=== PATIENT | female | born 1960 ===

== ENCOUNTER 2017-08-11 22:10 | Observation (INO) | payer OTHER ==
[2017-08-11] MEDS: Sodium Chloride 0.9% 1,000 ML IV SCH (23:14)
--- NOTE | 2017-08-11 23:40 | ED PDOC ---
History of Present Illness History of Present Illness: Patient is a 57 year old female who presents to ED for evaluation of tactile fever, nasal congestion, sore throat, and body aches (mostly lower back pain) for the past 3 days associated with a wet cough productive of clear/green tinged phlegm. Patient reports she is visiting from [place] and arrived in the [facility] 3 weeks ago. Patient states that right before she left [place], she had a physical examination and blood work that resulted unremarkable. Patient states she takes a "liver medication" but cannot recall why or the name of the medication. She further reports that her daughter gave her an unknown medication this afternoon which caused her to immediately vomit x1 (NB, NB). Patient denies any: chest pain, abdominal pain, diarrhea, current nausea, rash, sick contacts, headache, dizziness, urinary symptoms, chills, SOB, ear pain, palpitations. PMD: in [place] Management Planner line: # [id number] HPI: Influenza Time Seen by Provider: 08/11/17 22:31 Chief Complaint: Cough, Cold, Congestion Chief Complaint (Provider): Fever, Cough History Per: Patient Exam Limitations: no limitations Have you had recent travel within the past 21 days to any of: Yes Other Location:: [place] Onset/Duration Of Symptoms: Days (x3) Sick Contacts (Context): None Past Medical History Reviewed: Historical Data, Nursing Documentation, Vital Signs Vital Signs: Last Vital Signs Temp 101.0 F H 08/11/17 23:14 Pulse 105 H 08/11/17 22:30 Resp 18 08/11/17 22:30 BP 142/70 08/11/17 22:30 Pulse Ox 96 08/11/17 22:30 - Medical History Other PMH: Possible liver disease - Surgical History Surgical History: Cholecystectomy - Family History Family History: States: Unknown Family Hx - Living Arrangements Living Arrangements: With Family - Social History Current smoker - smoking cessation education provided: No Alcohol: None Drugs: Denies - Allergies Allergies/Adverse Reactions: Allergies Allergy/AdvReac Type Severity Reaction Status Date / Time No Known Allergies Allergy Verified 08/11/17 22:41 Review of Systems ROS Statement: Except As Marked, All Systems Reviewed And Found Negative Constitutional: Positive for: Fever ENT: Positive for: Throat Pain Respiratory: Positive for: Cough Gastrointestinal: Positive for: Vomiting Musculoskeletal: Positive for: Back Pain, Other (body aches) Physical Exam - Reviewed Nursing Documentation Reviewed: Yes Vital Signs Reviewed: Yes - Physical Exam Appears: Positive for: Well, Non-toxic, No Acute Distress Head Exam: Positive for: ATRAUMATIC, NORMOCEPHALIC Skin: Positive for: Normal Color, Warm, Dry Eye Exam: Positive for: EOMI, PERRL. Negative for: Conjunctival injection ENT: Positive for: Pharynx Is (clear, uvula midline), TM Is/Are (nonbulging and nonerythematous bilaterally), Nasal Congestion (clear rhinorrhea (-) nasal flaring), Pharyngeal Erythema (mild), Other (mucus membranes moist, airway patent.). Negative for: Sinus Pain/Drainage, Tonsillar Exudate Neck: Positive for: Painless ROM, Supple Cardiovascular/Chest: Positive for: Regular Rate, Rhythm Respiratory: Positive for: Normal Breath Sounds (speaking in full sentences, respirations even and nonlabored). Negative for: Decreased Breath Sounds, Accessory Muscle Use, Respiratory Distress Gastrointestinal/Abdominal: Positive for: Soft. Negative for: Tenderness, Mass , Distended, Guarding, Rebound Back: Positive for: Other (bilateral paralumbar tenderness). Negative for: L CVA Tenderness, R CVA Tenderness, Vertebral Tenderness Extremity: Positive for: Normal ROM. Negative for: Deformity Neurologic/Psych: Positive for: Alert, Oriented (x3), Cerebellar Tests (intact) , Gait (steady in ED). Negative for: Aphasia, Facial Droop Medical Decision Making Medical Decision Making: Clinical Impression: Fever, Cough R/O Pneumonia Plan: -IV access -CBC -CMP -Blood Culture -Urinalysis -Urine culture -Troponin -EKG -Chest XR -VBG shock panel -Tylenol 650mg PO -Zofran 4mg ODT -Rapid Strep -Throat culture -Influenza A/B -Business Information Consultant [id number] EKG reviewed: NSR @ 93 bpm (-) ST elevation (-) ectopy; QTc 442. 0000 Case endorsed to Emily Arevalo PA-C, at 0000, pending lab results, re-evaluation, and further disposition. Pertinent details reviewed. - Laboratory Results Result Diagrams: 08/11/17 23:05 08/11/17 23:05 - ECG O2 Sat by Pulse Oximetry: 96 (RA) Pulse Ox Interpretation: Normal Disposition - Clinical Impression Clinical Impression: Cough, Fever, Nasal congestion - Patient ED Disposition Is Patient to be Admitted: Transfer of Care (to Emily Arevalo PA-C at 0000 pending lab results, re-evaluation, and further disposition) - Disposition Disposition: Transfer of Care (to Emily Arevalo [facility] at 0000 pending re-evaluation and further disposition) Disposition Time: 00:00 Condition: FAIR Forms: [employer] ([place] Islander)
[2017-08-11 23:50] LABS: BASO # 0.1 K/uL (0.0-0.2); BASO % 0.5 % (0.0-2.0); HEMOGLOBIN 14.2 g/dL (12.0-16.0); LYMPH # 1.3 K/uL (1.0-4.3); LYMPH % 5.4 % (20.0-40.0); MEAN CORPUSCULAR HEMOGLOBIN 32.9 pg (27.0-31.0); MEAN CORPUSCULAR HGB CONC 34.2 g/dL (33.0-37.0); MEAN PLATELET VOLUME 9.9 fl (7.2-11.7); MONO # 1.9 K/uL (0.0-0.8); MONO % 8.2 % (0.0-10.0); NEUT # 20.1 K/uL (1.8-7.0); NEUT % 85.9 % (50.0-75.0); PLATELET COUNT 152 K/uL (130-400); RBC 4.34 Mil/uL (3.80-5.20); RED CELL DISTRIBUTION WIDTH 12.4 % (11.5-14.5); WHITE BLOOD COUNT 23.4 K/uL (4.8-10.8)
[2017-08-11 23:52] LABS: VENOUS BLOOD GAS BASE EXCESS 2.2 mmol/L (0.0-2.0); VENOUS BLOOD GAS PCO2 34 mmHg (40-60); VENOUS BLOOD GAS PO2 64 mm/Hg (30-55); VENOUS BLOOD PH 7.48 (7.32-7.43)
[2017-08-11 23:56] LABS: SQUAMOUS EPITHIAL < 1 /hpf (0-5); URINE BACTERIA RARE (<OCC); URINE BILIRUBIN NEGATIVE (NEGATIVE); URINE BLOOD SMALL (NEGATIVE); URINE CLARITY SLIGHTY-CLOUDY (Clear); URINE COLOR YELLOW (YELLOW); URINE GLUCOSE (UA) NEG (Normal); URINE LEUKOCYTE ESTERASE NEG Leu/uL (Negative); URINE PROTEIN 30 mg/dL (NEGATIVE); URINE UROBILINOGEN 0.2-1.0 mg/dL (0.2-1.0)
[2017-08-11 23:57] LABS: ALBUMIN 4.3 g/dL (3.5-5.0); ALT/SGPT 82 U/L (9-52); AST/SGOT 48 U/L (14-36); BLOOD UREA NITROGEN 10 mg/dl (7-17); CALCIUM 9.3 mg/dL (8.4-10.2); GFR AFRICAN-AMERICAN > 60; GFR NON-AFRICAN AMERICAN > 60
--- NOTE | 2017-08-12 00:30 | RAD ---
EXAM: XR Chest, 2 Views CLINICAL HISTORY: 57 years old, female; Signs and symptoms; Cough and fever; Symptoms not specified; Additional info: Fever, cough TECHNIQUE: Frontal and lateral views of the chest. COMPARISON: No relevant prior studies available. FINDINGS: Lungs: Apparent mild patchy opacity medial right lung base. Pleural space: No pleural effusion. No pneumothorax. Heart: No cardiomegaly. Mediastinum: Unremarkable. Bones/joints: No acute fracture. Upper abdomen: Surgical clips within RIGHT upper quadrant. IMPRESSION: 1. Suspect right basilar pneumonia. Followup to resolution to exclude underlying pathology. 2. Incidental/non-acute findings are described above.
--- NOTE | 2017-08-12 00:41 | ED PDOC ---
- Laboratory Results Result Diagrams: 08/11/17 23:05 08/11/17 23:05 - ECG O2 Sat by Pulse Oximetry: 96 (RA) - Progress ED Course And Treament: case endorsed to telegraphic typewriter installer from [facility]ST[facility]O pending labs, xray read, re-eval EXAM: XR Chest, 2 Views CLINICAL HISTORY: 57 years old, female; Signs and symptoms; Cough and fever; Symptoms not specified; Additional info: Fever, cough TECHNIQUE: Frontal and lateral views of the chest. COMPARISON: No relevant prior studies available. FINDINGS: Lungs: Apparent mild patchy opacity medial right lung base. Pleural space: No pleural effusion. No pneumothorax. Heart: No cardiomegaly. Mediastinum: Unremarkable. Bones/joints: No acute fracture. Upper abdomen: Surgical clips within RIGHT upper quadrant. IMPRESSION: 1. Suspect right basilar pneumonia. Followup to resolution to exclude underlying pathology. 2. Incidental/non-acute findings are described above. IV rocephin, IV zithromax ordered. potassium PO ordered Case discussed with Dr. Cason, Hospitalist on-call, for admission Disposition - Clinical Impression Clinical Impression: Pneumonia, Sepsis - POA Present On Arrival: None - Disposition Disposition: Admitted as In-Patient Disposition Time: 01:10 Condition: FAIR Forms: [employer] (Icelandic)
[2017-08-12] MEDS: Sodium Chloride 0.9% 1,000 ML IV SCH ×5 (00:52→20:59)
[2017-08-12 00:56] LABS: LARGE PLATELETS PRESENT; LYMPHOCYTE 4 % (20-50); MONOCYTE 9 % (0-10); NEUTROPHIL 87 % (42-75); PLATELET ESTIMATE NORMAL (NORMAL); TOTAL CELLS COUNTED 100
[2017-08-12] MEDS ORDERED: Azithromycin 500 MG in Sodium Chloride 0.9% 250 ML IVPB STA (01:07)
[2017-08-12] MEDS ORDERED: Potassium Chloride 20 mEq ER Tab PO ONE ×2 (01:14→01:44)
[2017-08-12] MEDS ORDERED: Sodium Chloride 3% for Inhalation 4 ML VIAL.NEB IH PRN (01:17)
[2017-08-12] MEDS ORDERED: Acetaminophen-Codeine 300/30 mg Tab PO PRN (01:30)
[2017-08-12] MEDS ORDERED: cefTRIAXone (Rocephin) 1 gm Inj ONE (01:43)
--- NOTE | 2017-08-12 01:55 | CP.PCM.HP ---
History of Present Illness - History of Present Illness History of Present Illness: CC: Fever, chills This is a 57 year old female with pmh of non alcoholic steatohepatitis, with no other reported past medical history, visiting from [place] but has been [place] the [place] 1 [place], who is complaining of abrupt onset of nasal congestion, sore throat , generalized malaise which has been going on x 3 days. Today she felt feverish and weak which caused her to come to the ED. She is also c/o nausea and vomiting earlier today after receving an unknown medication from her daughter. In the ED, the patient was found to be mildly tachycardic at 105, fever of 101, and with leukocytosis of 23.4 and neut % 85.9. CXR reveals right basilar pneumonia. Given her pneumonia and meeting sepsis criteria, the patient is to be admitted to telemetry for monitoring and treatment. Patient denies chest pain , shortness of breath,diarrhea, headache. All of the patient's questions were answered at the bedside. Present on Admission - Present on Admission Any Indicators Present on Admission: No History of DVT/PE: No History of Uncontrolled Diabetes: No Review of Systems - Review of Systems Review of Systems: A 12 point review of systems was conducted and found to be negative other than what was mentioned in the HPI. - Hematologic/Lymphatic Additional comments: A 12 point review of systems was conducted and found to be negative other than in HPI. Past Patient History - Infectious Disease Hx of Infectious Diseases: None - Past Medical History & Family History Past Medical History?: Yes Past Family History: Reviewed and not pertinent - Past Social History Smoking Status: Never Smoked Alcohol: None Drugs: Denies - PSYCHIATRIC Hx Substance Use: No - SURGICAL HISTORY Hx Cholecystectomy: Yes - ANESTHESIA Hx Anesthesia: Yes Meds Allergies/Adverse Reactions: Allergies Allergy/AdvReac Type Severity Reaction Status Date / Time No Known Allergies Allergy Verified 08/11/17 22:41 Physical Exam - Additional Findings Additional findings: Physical exam: Constitutional- cooperative, awake, alert Head- NCAT, PERRL Eye- PERRL, EOMI ENT- normal exam, MMM. Neck- normal inspection, supple, no JVD Respiratory- CTAB, scattered rhonchi bilaterally, most prominent at right base Cardiovascular- RRR, +S1, +S2 no MRG GI/Abdominal- normal bowel sounds, soft, no mass, no hsm Skin- warm, dry Extremities Exam- normal capillary refill, normal inspection Neurological Exam- alert, awake, oriented Psych- normal mood, normal affect Results - Vital Signs Recent Vital Signs: Last Vital Signs Temp 99 F 08/12/17 00:14 Pulse 105 H 08/11/17 22:30 Resp 18 08/11/17 22:30 BP 142/70 08/11/17 22:30 Pulse Ox 96 08/12/17 01:27 - Labs Result Diagrams: 08/11/17 23:05 08/11/17 23:05 Labs: Laboratory Results - last 24 hr 08/11/17 08/11/17 08/11/17 23:05 23:05 23:05 WBC 23.4 H RBC 4.34 Hgb 14.2 Hct 41.6 MCV 96.0 MCH 32.9 H MCHC 34.2 RDW 12.4 Plt Count 152 MPV 9.9 Neut % (Auto) 85.9 H Lymph % (Auto) 5.4 L [place] % (Auto) 8.2 Eos % (Auto) 0.0 Baso % (Auto) 0.5 Neut # (Auto) 20.1 H Lymph # (Auto) 1.3 [place] # (Auto) 1.9 H Eos # (Auto) 0.0 Baso # (Auto) 0.1 Neutrophils % (Manual) 87 H Lymphocytes % (Manual) 4 L Monocytes % (Manual) 9 Platelet Estimate Normal Large Platelets Present RBC Morphology Normal pO2 VBG pH VBG pCO2 VBG HCO3 VBG Total CO2 VBG O2 Sat (Calc) VBG Base Excess VBG Potassium Glucose Lactate FiO2 Sodium 138 Potassium 3.2 L Chloride 99 Carbon Dioxide 21 L Anion Gap 21 H BUN 10 Creatinine 0.5 L Est GFR ( Amer) > 60 Est GFR (Non-Af Amer) > 60 Random Glucose 133 H Calcium 9.3 Total Bilirubin 0.7 AST 48 H ALT 82 H Alkaline Phosphatase 131 H Troponin I < 0.0120 Total Protein 8.5 H Albumin 4.3 Globulin 4.2 H Albumin/Globulin Ratio 1.0 Venous Blood Potassium Urine Color Urine Clarity Urine pH Ur Specific [place] Urine Protein Urine Glucose (UA) Urine Ketones Urine Blood Urine Nitrate Urine Bilirubin Urine Urobilinogen Ur Leukocyte Esterase Urine RBC (Auto) Urine Microscopic WBC Ur Squamous Epith Cells Urine Bacteria Influenza Typ A,B (EIA) Negative for flu a/b Grp A Beta Strep Ag 05/22/18 05/22/18 05/22/18 23:05 23:05 23:48 WBC RBC Hgb Hct MCV MCH MCHC RDW Plt Count MPV Neut % (Auto) Lymph % (Auto) [place] % (Auto) Eos % (Auto) Baso % (Auto) Neut # (Auto) Lymph # (Auto) [place] # (Auto) Eos # (Auto) Baso # (Auto) Neutrophils % (Manual) Lymphocytes % (Manual) Monocytes % (Manual) Platelet Estimate Large Platelets RBC Morphology pO2 64 H VBG pH 7.48 H VBG pCO2 34 L VBG HCO3 26.5 VBG Total CO2 26.3 VBG O2 Sat (Calc) 96.5 H VBG Base Excess 2.2 H VBG Potassium 3.0 L Glucose 139 H Lactate 2.1 FiO2 21.0 Sodium 135.0 Potassium Chloride 100.0 Carbon Dioxide Anion Gap BUN Creatinine Est GFR ( Amer) Est GFR (Non-Af Amer) Random Glucose Calcium Total Bilirubin AST ALT Alkaline Phosphatase Troponin I Total Protein Albumin Globulin Albumin/Globulin Ratio Venous Blood Potassium 3.0 L Urine Color Yellow Urine Clarity Slighty-cloudy Urine pH 7.0 Ur Specific [place] 1.019 Urine Protein 30 Urine Glucose (UA) Neg Urine Ketones Negative Urine Blood Small Urine Nitrate Negative Urine Bilirubin Negative Urine Urobilinogen 0.2-1.0 Ur Leukocyte Esterase Neg Urine RBC (Auto) 15 H Urine Microscopic WBC 1 Ur Squamous Epith Cells < 1 Urine Bacteria Rare Influenza Typ A,B (EIA) Grp A Beta Strep Ag Negative Assessment & Plan - Assessment and Plan (Free Text) Plan: ASSESSMENT/PLAN This is a 57 year old female with pmh of non alcoholic steatohepatitis, with no other reported past medical history, visiting from [place] but has been [place] the [place] 1 [place], presenting to [facility] with sepsis and pneumonia. 1) Sepsis secondary to right basilar CAP - Admit to tele for monitoring - Continue Azithromycin 500 mg IVPB q 24 hrs - continue Rocephin 1 g IVPB q 24 hours - Tylenol PRN for fever > 100.4 - Normal saline at 150 cc/hour - F/u BCX x 2, Sputum CX, Throat CX, UCX - Reglan PRN N/V - HD stable at this time; tachycardia resolved with IV fluids 2) Back pain - Tylenol w/ codeine PRN for moderate to severe pain - chronic 3) RUSHING - Monitor for now - elevated transaminases likely at her baseline for chronic hepatitis due to fatty liver - Patient takes medication for this at home- instructed to bring it in if able 4) Hypokalemia - Likely due to decreased po intake and N/V - Repleted po - recheck 5) Leukocytosis - secondary to sepsis / pna - monitor cbc 6) DVT prophylaxis - Heparin 5000 units sc q 8 hrs
[2017-08-12] MEDS ORDERED: Azithromycin 500 MG IV IVPB ONE (03:32)
[2017-08-12 05:41] LABS: HEMOGLOBIN 13.9 g/dL (12.0-16.0); MEAN CELL VOLUME 97.9 fl (81.0-99.0); MEAN CORPUSCULAR HEMOGLOBIN 32.5 pg (27.0-31.0); MEAN CORPUSCULAR HGB CONC 33.2 g/dL (33.0-37.0); RBC 4.28 Mil/uL (3.80-5.20); RED CELL DISTRIBUTION WIDTH 12.5 % (11.5-14.5); WHITE BLOOD COUNT 22.3 K/uL (4.8-10.8)
[2017-08-12 06:39] LABS: BLOOD UREA NITROGEN 9 mg/dl (7-17); CALCIUM 8.6 mg/dL (8.4-10.2); GFR AFRICAN-AMERICAN > 60; GFR NON-AFRICAN AMERICAN > 60
--- NOTE | 2017-08-12 08:20 | CARD ---
APPROVED REPORT EKG Measurement Heart [id number] ME [id number] <Conclusion> Normal sinus rhythm Normal ECG
[2017-08-12] MEDS: Azithromycin 500 MG in Sodium Chloride 0.9% 250 ML IVPB SCH (09:01)
[2017-08-13] MEDS ORDERED: Albuterol-Ipratrop 3 mg / 0.5 (3 ml) UD INH ONE (00:42)
[2017-08-13] MEDS: guaiFENesin 600 mg ER Tab PO SCH ×2 (00:54→08:43)
[2017-08-13] MEDS: Sodium Chloride 0.9% 1,000 ML IV SCH (05:04)
[2017-08-13 06:51] LABS: BLOOD UREA NITROGEN 7 mg/dl (7-17); CALCIUM 8.3 mg/dL (8.4-10.2); GFR AFRICAN-AMERICAN > 60; GFR NON-AFRICAN AMERICAN > 60
[2017-08-13 06:53] LABS: HEMOGLOBIN 11.9 g/dL (12.0-16.0); MEAN CELL VOLUME 96.5 fl (81.0-99.0); MEAN CORPUSCULAR HEMOGLOBIN 33.1 pg (27.0-31.0); MEAN CORPUSCULAR HGB CONC 34.3 g/dL (33.0-37.0); RBC 3.61 Mil/uL (3.80-5.20); RED CELL DISTRIBUTION WIDTH 12.5 % (11.5-14.5); WHITE BLOOD COUNT 14.8 K/uL (4.8-10.8)
[2017-08-13] MEDS: Azithromycin 500 MG in Sodium Chloride 0.9% 250 ML IVPB SCH (08:45)
--- NOTE | 2017-08-13 14:52 | CP.PCM.DIS ---
Provider - Provider Date of Admission: 08/12/17 01:30 Attending physician: Bar Cason DO Time Spent in preparation of Discharge (in minutes): 35 Diagnosis - Discharge Diagnosis (1) Sepsis Status: Acute (2) Pneumonia Status: Acute Hospital Course - Lab Results Lab Results: Micro Results 08/11/17 23:20 Blood-Venous Blood Culture - Preliminary NO GROWTH AFTER 24 HOURS 08/11/17 23:05 Blood-Venous Blood Culture - Preliminary NO GROWTH AFTER 24 HOURS 08/12/17 15:16 Sputum Gram Stain - Final Most Recent Lab Values WBC 14.8 K/uL (4.8-10.8) H 08/13/17 04:55 RBC 3.61 Mil/uL (3.80-5.20) L 08/13/17 04:55 Hgb 11.9 g/dL (12.0-16.0) L D 08/13/17 04:55 Hct 34.8 % (34.0-47.0) 08/13/17 04:55 MCV 96.5 fl (81.0-99.0) 08/13/17 04:55 MCH 33.1 pg (27.0-31.0) H 08/13/17 04:55 MCHC 34.3 g/dL (33.0-37.0) 08/13/17 04:55 RDW 12.5 % (11.5-14.5) 08/13/17 04:55 Plt Count 117 K/uL (130-400) L D 08/13/17 04:55 MPV 9.9 fl (7.2-11.7) 08/11/17 23:05 Neut % (Auto) 85.9 % (50.0-75.0) H 08/11/17 23:05 Lymph % (Auto) 5.4 % (20.0-40.0) L 08/11/17 23:05 [place] % (Auto) 8.2 % (0.0-10.0) 08/11/17 23:05 Eos % (Auto) 0.0 % (0.0-4.0) 08/11/17 23:05 Baso % (Auto) 0.5 % (0.0-2.0) 08/11/17 23:05 Neut # (Auto) 20.1 K/uL (1.8-7.0) H 08/11/17 23:05 Lymph # (Auto) 1.3 K/uL (1.0-4.3) 08/11/17 23:05 [place] # (Auto) 1.9 K/uL (0.0-0.8) H 08/11/17 23:05 Eos # (Auto) 0.0 K/uL (0.0-0.7) 08/11/17 23:05 Baso # (Auto) 0.1 K/uL (0.0-0.2) 08/11/17 23:05 Neutrophils % (Manual) 87 % (42-75) H 08/11/17 23:05 Lymphocytes % (Manual) 4 % (20-50) L 08/11/17 23:05 Monocytes % (Manual) 9 % (0-10) 08/11/17 23:05 Platelet Estimate Normal (NORMAL) 08/11/17 23:05 Large Platelets Present 08/11/17 23:05 RBC Morphology Normal (NORMAL) 08/11/17 23:05 pO2 64 mm/Hg (30-55) H 08/11/17 23:48 VBG pH 7.48 (7.32-7.43) H 08/11/17 23:48 VBG pCO2 34 mmHg (40-60) L 08/11/17 23:48 VBG HCO3 26.5 mmol/L 08/11/17 23:48 VBG Total CO2 26.3 mmol/L (22-28) 08/11/17 23:48 VBG O2 Sat (Calc) 96.5 % (40-65) H 08/11/17 23:48 VBG Base Excess 2.2 mmol/L (0.0-2.0) H 08/11/17 23:48 VBG Potassium 3.0 mmol/L (3.6-5.2) L 08/11/17 23:48 Sodium 135.0 mmol/L (132-148) 08/11/17 23:48 Chloride 100.0 mmol/L (98-107) 08/11/17 23:48 Glucose 139 mg/dL (65-105) H 08/11/17 23:48 Lactate 2.1 mmol/L (0.7-2.1) 08/11/17 23:48 FiO2 21.0 % 08/11/17 23:48 Sodium 141 mmol/l (132-148) 08/13/17 04:55 Potassium 3.7 MMOL/L (3.6-5.0) 08/13/17 04:55 Chloride 108 mmol/L (98-107) H 08/13/17 04:55 Carbon Dioxide 22 mmol/L (22-30) 08/13/17 04:55 Anion Gap 15 (10-20) 08/13/17 04:55 BUN 7 mg/dl (7-17) 08/13/17 04:55 Creatinine 0.5 mg/dl (0.7-1.2) L 08/13/17 04:55 Est GFR ( Amer) > 60 08/13/17 04:55 Est GFR (Non-Af Amer) > 60 08/13/17 04:55 Random Glucose 106 mg/dL (65-105) H 08/13/17 04:55 Calcium 8.3 mg/dL (8.4-10.2) L 08/13/17 04:55 Total Bilirubin 0.7 mg/dl (0.2-1.3) 08/11/17 23:05 AST 48 U/L (14-36) H 08/11/17 23:05 ALT 82 U/L (9-52) H 08/11/17 23:05 Alkaline Phosphatase 131 U/L (38-126) H 08/11/17 23:05 Troponin I < 0.0120 ng/mL (0.00-0.120) 08/11/17 23:05 Total Protein 8.5 G/DL (6.3-8.2) H 08/11/17 23:05 Albumin 4.3 g/dL (3.5-5.0) 08/11/17 23:05 Globulin 4.2 gm/dL (2.2-3.9) H 08/11/17 23:05 Albumin/Globulin Ratio 1.0 (1.0-2.1) 08/11/17 23:05 Venous Blood Potassium 3.0 mmol/L (3.6-5.2) L 08/11/17 23:48 Urine Color Yellow (YELLOW) 08/11/17 23:05 Urine Clarity Slighty-cloudy (Clear) 08/11/17 23:05 Urine pH 7.0 (5.0-8.0) 08/11/17 23:05 Ur Specific [place] 1.019 (1.003-1.030) 08/11/17 23:05 Urine Protein 30 mg/dL (NEGATIVE) 08/11/17 23:05 Urine Glucose (UA) Neg mg/dL (Normal) 08/11/17 23:05 Urine Ketones Negative mg/dL (NEGATIVE) 08/11/17 23:05 Urine Blood Small (NEGATIVE) 08/11/17 23: Urine Nitrate Negative (NEGATIVE) 08/11/17 23:05 Urine Bilirubin Negative (NEGATIVE) 08/11/17 23:05 Urine Urobilinogen 0.2-1.0 mg/dL (0.2-1.0) 08/11/17 23:05 Ur Leukocyte Esterase Neg [place]/uL (Negative) 08/11/17 23:05 Urine RBC (Auto) 15 /hpf (0-3) H 08/11/17 23:05 Urine Microscopic WBC 1 /hpf (0-5) 08/11/17 23: Ur Squamous Epith Cells < 1 /hpf (0-5) 08/11/17 23:05 Urine Bacteria Rare (<OCC) 08/11/17 23:05 Influenza Typ A,B (EIA) Negative for flu a/b (NEGATIVE) 08/11/17: Grp A Beta Strep Ag Negative (NEGATIVE) 08/11/17 23:05 - Hospital Course Hospital Course: This is a 57 year old female with pmh of non alcoholic steatohepatitis, with no other reported past medical history, visiting from [place] but [place] been [place] the [place] 1 [place], presented with fever, cough, SOB 1) Sepsis secondary to right basilar CAP - Received Azithromycin 500 mg IVPB q 24 hrs and Rocephin 1 g IVPB q 24 hours - Tylenol PRN for fever > 100.4 - Normal saline at 150 cc/hour - Lactic acid normal - fever resolved , leukocytosis trended down to 14k - pt feels better , cough and dyspnea resolved and wants to go home - will d/c pt home on PO Levaquin 2) Back pain - Tylenol w/ codeine PRN for moderate to severe pain - chronic 3) RUSHING - Monitor for now - elevated transaminases likely at her baseline for chronic hepatitis due to fatty liver - Patient takes medication for this at home- instructed to bring it in if able 4) Hypokalemia, resolved - Likely due to decreased po intake and N/V - Repleted po - r 5) Leukocytosis - secondary to sepsis / pna - monitor cbc 6) DVT prophylaxis - Heparin 5000 units sc q 8 hrs Discharge Exam - Head Exam Head Exam: ATRAUMATIC, NORMAL INSPECTION, NORMOCEPHALIC - Eye Exam Eye Exam: EOMI, Normal appearance, PERRL Pupil Exam: NORMAL ACCOMODATION - ENT Exam ENT Exam: Mucous Membranes Moist, Normal External Ear Exam - Neck Exam Neck exam: Full Rom - Respiratory Exam Respiratory Exam: Rales (minimal rales bases), NORMAL BREATHING PATTERN. absent : Respiratory Distress - Cardiovascular Exam Cardiovascular Exam: REGULAR RHYTHM, +S1, +S2 - GI/Abdominal Exam GI & Abdominal Exam: Normal Bowel Sounds, Soft. absent: Tenderness - Extremities Exam Extremities exam: full ROM, normal capillary refill, pedal pulses present - Back Exam Back exam: FULL ROM, NORMAL INSPECTION. absent: CVA tenderness (L), CVA tenderness (R), vertebral tenderness - Neurological Exam Neurological exam: Alert, CN II-XII Intact, Oriented x3, Reflexes Normal - Psychiatric Exam Psychiatric exam: Normal Affect, Normal Mood - Skin Skin Exam: Dry, Intact, Normal Color Discharge Plan - Discharge Medications Prescriptions: Levofloxacin [Levaquin] 500 mg PO DAILY #7 tablet - Follow Up Plan Condition: GOOD Instructions: Pneumonia, Adult (DC), Sepsis, Adult (DC) Additional Instructions: [facility] a [facility]00PM con el doctor johan Referrals: [facility] [place] [Outside]
[2017-08-13] MEDS ORDERED: Pneumococcal 23-Valent Vaccine IM ONE (15:24)
[2017-08-13 16:10] VITALS: BP 116/65; PULSE 74; RESP 18; TEMP 98.3; O2SAT 97
== END 2017-08-13 17:30 | disposition home or self-care (01) ==
LOC: H.ER 22:10 → H.ERHOLD 08-12 01:30 → INTOOBSV 08-12 01:30 → H.TEL 08-12 03:41
PROVIDERS: ADMIT Internal Medicine; ATTEND Internal Medicine
DX: A41.9 Sepsis, unspecified organism (principal); E87.6 Hypokalemia; J18.9 Pneumonia, unspecified organism; K75.81 Nonalcoholic steatohepatitis (NASH); Z23 Encounter for immunization; M54.5 Low back pain
CPT/HCPCS: 36415; 71046; 80048; 80053; 81003; 82803; 84484; 85025; 85027; 87040; 87070; 87086; 87430; 87804; 90471; 90732; 93005; 94640; 96360; 96365; 99285; G0378; J0456; J0696; J1644; J7040; J7050